=== PATIENT | female | born 2000 | race Caucasian/White ===

== ENCOUNTER 2022-02-11 18:38 | Emergency (ER) | payer OTHER ==
[~2022-02-11] VITALS: Ht 144.8 cm; Wt 55.8 kg
--- NOTE | 2022-02-11 19:24 | NUR ---
Dr Jaquez into eval patient.
[2022-02-11] MEDS ORDERED: TDAP DIPH,PERTUSS,TET VAC/PF 0.5 ML DISP.SYRIN IM ONE ×2 (19:30→19:33)
--- NOTE | 2022-02-11 19:48 | NUR ---
Patient discharged to home in stable condition with boyfriend taking patient home. Written and verbal after care instructions given. Patient verbalizes understanding of instructions. Stressed follow up or return to ER for worsening s/s.
== END 2022-02-11 19:49 | disposition home or self-care (01) ==
LOC: ER 18:41
DX: S91.312A Laceration without foreign body, left foot, initial encounter (principal); W22.8XXA Striking against or struck by other objects, initial encounter; Y92.89 Other specified places as the place of occurrence of the external cause; F17.210 Nicotine dependence, cigarettes, uncomplicated
CPT/HCPCS: 90715; A4663